=== PATIENT | male | born 1945 | race Caucasian/White ===

== ENCOUNTER → 2018-08-07 | Outpatient (CLI) | payer OTHER ==
[~2018-08-07] VITALS: Ht 172.7 cm; Wt 70.3 kg
[~2018-08-07] MED LIST: ALIGN4 MG PO; BYSTOLIC 5 MG5 M1 PO; CO Q-10150 MG PO; LUGOL'S STRONG I8 ML PO; OMEGA 3 FISH O1 EACH PO; PRAVACHOL80 MG PO; VASOTEC10 MG PO; VITAMIN B-125000 MC1 SUBLING; VITAMIN D35000 UNIT PO
--- NOTE | 2018-08-10 16:05 | PATH ---
[facility] [place] [address] PATHOLOGY RPT PROCEDURE Name: KAYLIE GLEASON Room #: REG QUIQUE Alcocer#: [id number] Admission: 08/07/18 Date of : 49 Discharge: Report #: [id number] Path Case #: [id number] [facility] Accession Number: [id number] . 01 Material submitted: . PART A: SIGMOID COLON POLYP X 2 PART B: RECTAL POLYP X 2 . 01 Clinical history: . Pre-OP DX: Dysphagia, GERD, Hx polyps Post-OP DX: Colon polyps, rectal polyps, diverticulosis, esophagitis, dysplasia . 02 Diagnosis: A. Polyp x 2, sigmoid colon polyp, endoscopic biopsy: - One fragment showing tubular adenoma without high grade dysplasia. - Remainder of fragments showing hyperplastic polyp without dysplasia. . B. Polyp x 2, rectal polyp, endoscopic biopsy: - Both fragments showing tubular adenoma. - Negative for high grade dysplasia. (IUV/db; 08/10/18) LBQ/08/10/2018 . 02 Electronically signed: . Connie Bernard MD, Pathologist NPI- [id number] . 01 Gross description: . A. Received in formalin labeled "Kaylie Gleason, ELIZABETH polyp at sigmoid colon x2," are 4 segments of rick soft tissue measuring 1.3 x 0.9 x 0.3 cm in aggregate dimensions and ranging from 0.3 to 0.5 cm in maximum dimension. The specimen is submitted entirely in cassette A1. . B. Received in formalin labeled "Kaylie Gleason, ELIZABETH rectal polyp x2," are 2 segments of rick soft tissue measuring 0.7 x 0.3 x 0.2 cm in aggregate dimensions and ranging from 0.3 to 0.4 cm in maximum dimension. The specimen is submitted entirely in cassette B1. (TSD; 08/07/2018) TOB/TOB . 02 Pathologist provided ICD-10: D12.5, K63.5, D12.8 . 02 CPT . 709147, 602963 Specimen Comment: A courtesy copy of this [place] [address] PATHOLOGY RPT PROCEDURE Name: KAYLIE GLEASON Room #: REG QUIQUE Alcocer#: [id number] Admission: 08/07/18 Date of : 49 Discharge: Report #: [id number] Path Case #: [id number] Specimen Comment: [phone], . Specimen Comment: Report sent to / DR GARCIA Performed at: [address], [place], [place] [id number] MD Herson Xiao MD Phone: [phone] Performed at: [address] [id number] MD Connie Bernard MD Phone: [phone]
== END | disposition home or self-care (01) ==
LOC: GI 06:28
DX: Z12.11 Encounter for screening for malignant neoplasm of colon (principal); Z80.0 Family history of malignant neoplasm of digestive organs; D12.8 Benign neoplasm of rectum; D12.5 Benign neoplasm of sigmoid colon; K63.5 Polyp of colon; K57.30 Diverticulosis of large intestine without perforation or abscess without bleeding; K21.0 Gastro-esophageal reflux disease with esophagitis; K22.2 Esophageal obstruction; I10 Essential (primary) hypertension; E78.5 Hyperlipidemia, unspecified; Z79.899 Other long term (current) drug therapy; Z98.890 Other specified postprocedural states; Z88.6 Allergy status to analgesic agent; Z87.19 Personal history of other diseases of the digestive system; Z86.010 Personal history of colon polyps
CPT/HCPCS: 62110; 62900

== ENCOUNTER → 2018-09-18 | Outpatient (CLI) | payer OTHER ==
[~2018-09-18] VITALS: Ht 172.7 cm; Wt 72.6 kg
--- NOTE | ~2018-09-18 | P ---
[facility] [place] [address] [place] [address] PROCEDURE REPORT Name: KAYLIE DAVILA Room #: REG [facility]#: [id number] Admission: 09/18/18 Attend Phys: Gurinder Chanel Discharge: Date of : 49 Report #: [id number] THIS REPORT FOR: //name// CC: Gurinder Miguel DATE OF SERVICE: 09/18/2018 PROCEDURE PERFORMED: Upper endoscopy with biopsies and esophageal dilation. HISTORY OF PRESENT ILLNESS: The patient is a 73-year-old male with a history of gastroesophageal reflux disease, who underwent an upper endoscopy by myself on 08/07/2018 for dysphagia and heartburn at that time. He was noted to have grade C erosive esophagitis, an inlet patch was noted in the upper esophagus. There was mild narrowing in the distal esophagus. Savary dilation with 48-Zimbabwean was performed and the patient was started on daily PPI therapy. He now presents for a routine followup to rule out the possibility of Kelley's. He does report intermittent dysphagia still at this time. He reports improvement in his heartburn symptoms, but continues to have intermittent heartburn on a daily basis. DESCRIPTION OF PROCEDURE: The risks and benefits of the procedure were explained to the patient, those risks including but not limited to bleeding, perforation, the risk of sedation. He understood these risks and gave informed consent. Sedation was given using propofol per anesthesia. Next, using a standard Olympus upper endoscope, the scope was placed in the patient's mouth and advanced under direct vision through the esophagus, stomach and into the second portion of the duodenum. The larynx was normal in appearance. In the proximal esophagus, inlet patch was once again noted. There was a mild narrowing extrinsically from the aorta in this area. The scope passed through without difficulty. Biopsies of the inlet patch were obtained. The mid esophagus was normal. In the distal esophagus at the GE junction, no further esophagitis was noted; however, 2 small patches of possible Kelley's were noted. Biopsies were obtained. No stricture was seen. Overall, the gastric mucosa was normal. The pylorus was normal and patent. The duodenal bulb, first and second portion were all normal. The scope was then brought back up into the patient's stomach and a Savary guidewire was inserted through the scope, leaving the guidewire in place as the scope was then removed. Next, a 51-Zimbabwean Savary dilation of the esophagus was performed without difficulty. The wire and dilator removed. The scope was reintroduced into the patient's stomach. There was no evidence of mucosal tear after dilation. The scope was then withdrawn and the procedure terminated. The patient tolerated the procedure well. IMPRESSION: 1. Inlet patch, proximal esophagus. 2. Previous grade C erosive esophagitis well healed, but possible short segment [facility] [address] [place] [address] PROCEDURE REPORT Name: KAYLIE DAVILA Room #: REG QUIQUE Alcocer#: [id number] Admission: 09/18/18 Attend Phys: Gurinder Chanel Discharge: Date of : 49 Report #: [id number] Kelley's. Biopsies obtained. 3. Otherwise, normal upper endoscopy. RECOMMENDATIONS: 1. Await biopsy results. 2. We discussed possible trial of b.i.d. PPI therapy at this time as the patient continues to have intermittent heartburn symptoms. 3. If no improvement in dysphagia, may consider esophageal manometry in the future. Thank you for allowing me to participate in his care. By: 0917 Gurinder Castellon MD /nt
--- NOTE | 2018-09-21 15:05 | PATH ---
[facility] [address] [place] [address] PATHOLOGY RPT PROCEDURE Name: KAYLIE GLEASON Room #: REG QUIQUE Alcocer#: [id number] Admission: 09/18/18 Date of : 49 Discharge: Report #: [id number] Path Case #: [id number] [facility] Accession Number: [id number] . 01 Material submitted: . PART A: BIOPSY DISTAL ESOPHAGUS R/O BARRETTS PART B: BIOPSY INLET PATCH PROXIMAL ESOPHAGUS . 01 Clinical history: . Pre-OP DX: 6 week follow-up (grade c esophagitis) dysphagia Post-OP DX: Reflux, dysphagia, healed esophagitis . 02 Diagnosis: A. Gastroesophageal mucosa, distal esophagus, rule out Kelley's, endoscopic biopsy: - Specialized columnar epithelium (gastric cardia-type mucosa) with intestinal metaplasia, compatible with Kelley's metaplasia. - Squamous mucosa with mild esophagitis. - Negative for dysplasia (please see comment). . B. Gastric cardia-type mucosa, inlet patch proximal esophagus, endoscopic biopsy: - Moderate chronic inflammation within gastric cardia-type mucosa, consistent with an inlet patch. - Negative for intestinal metaplasia or dysplasia. . (IUV:leanne; 09/21/2018) MBR/09/21/2018 . 02 Comment: Dr. Gustavo Rivers has seen patient account representative slides of this case and concurs with my diagnosis. . The above diagnosis of Kelley's esophagus is made due to presence of intestinal metaplasia and with the assumption that the biopsies were obtained from the columnar mucosa in the distal esophagus located at least 1 cm proximal to the top of the gastric folds as per the 2016 ACG guidelines. . (IUV:principal process engineer; 09/21/2018) . 02 Electronically signed: . Connie Bernard MD, Pathologist NPI- [id number] . 01 Gross description: . A. Received in formalin labeled "Kaylie Gleason BX, distal esophagus, [place] [address] PATHOLOGY RPT PROCEDURE Name: KAYLIE GLEASON [id number] Admission: 09/18/18 Date of : 49 Discharge: Report #: [id number] Path Case #: [id number] rule out Kelley's," are 2 segments of rick soft tissue measuring 0.9 x 0.2 x 0.2 cm in aggregate dimensions and ranging from 0.4 to 0.5 cm in maximum dimension. The specimen is submitted entirely in cassette A1. . B. Received in formalin labeled "Victorino, Kaylie, BX inlet patch," and additionally labeled on the requisition as "proximal esophagus," is a single segment of rick soft tissue measuring 0.6 cm in maximum dimension. The specimen is entirely submitted in cassette B1. (TSD; 09/18/2018) TOB/TOB . 02 Pathologist provided ICD-10: K22.70, K20.9, R13.10 . 02 CPT . 315200, 295669 Specimen Comment: A courtesy copy of this report has been sent to Specimen Comment: [phone], . Specimen Comment: Report sent to / DR GARCIA Performed at: [address], [place] [id number] MD Herson Xiao MD Phone: [phone] Performed at: [address] [id number] MD Connie Bernard MD Phone: [phone]
== END | disposition home or self-care (01) ==
LOC: GI 07:11
DX: K22.70 Barrett's esophagus without dysplasia (principal); K21.0 Gastro-esophageal reflux disease with esophagitis; R13.19 Other dysphagia; I10 Essential (primary) hypertension; E78.00 Pure hypercholesterolemia, unspecified; Z98.890 Other specified postprocedural states; Z88.6 Allergy status to analgesic agent; Z79.899 Other long term (current) drug therapy
CPT/HCPCS: 62110; 62900

== ENCOUNTER → 2019-09-17 | Outpatient (CLI) | payer OTHER ==
[~2019-09-17] VITALS: Ht 172.7 cm; Wt 70.3 kg
[~2019-09-17] MED LIST changes: +5-HTP100 MG PO; +ASA81BEC PO; +AZOR 5-40 MG T1 EACH PO; +CRESTOR10 MG PO; +MAGNESIUM250 M1 PO; +OMEPRAZOLE 20 M20 M1 PO
--- NOTE | 2019-09-22 09:46 | P ---
[facility] [place] [address] [place] [address] PROCEDURE REPORT Name: KAYLIE DAVILA Room #: REG [facility] Leodan#: [id number] Admission: 09/17/19 Attend Phys: Gurinder Chanel Discharge: Date of : 49 Report #: [id number] THIS REPORT FOR: cc: Michael Miguel MD, John R. MD McElhinney, Christian C. MD ~ CC: Gurinder Miguel DATE OF SERVICE: 09/17/2019 PROCEDURE PERFORMED: Upper endoscopy with biopsies and esophageal dilation. HISTORY OF PRESENT ILLNESS: The patient is a 74-year-old male with a history of gastroesophageal reflux disease, Kelley's, here for a 1 year followup. He does report some mild dysphagia at times. He is taking Prilosec on a daily basis. He continues to have breakthrough heartburn at times. DESCRIPTION OF PROCEDURE: The risks and benefits of the procedure were explained to the patient, those risks including but not limited to bleeding, perforation and the risk of sedation. He understood these risks and gave informed consent. Sedation was given using propofol per anesthesia. Next, using a standard Olympus upper endoscope, the scope was placed in the patient's mouth and advanced under direct vision through the esophagus, stomach and into the second portion of the duodenum. The larynx was normal in appearance. In the upper esophagus, an inlet patch was once again noted. Mid esophagus was normal. A small segment of Kelley's was noted in the distal esophagus. Biopsies were obtained. Overall, the gastric mucosa was normal. The pylorus was normal and patent. The duodenal bulb, first and second portion were all normal. The scope was then brought back up into the patient's stomach and a Savary guidewire was inserted through the scope, leaving the guidewire in place as the scope was then withdrawn. Next, a 48-Kyrgyz Savary dilation of the esophagus was then performed without difficulty. The wire and dilator were removed. The scope was reintroduced into the patient's stomach. There was no evidence of mucosal tear after dilation. The scope was then withdrawn and the procedure terminated. The patient tolerated the procedure well. IMPRESSION: 1. Short segment Kelley's esophagus. 2. Inlet patch in the proximal esophagus. 3. Otherwise, normal upper endoscopy. RECOMMENDATIONS: 1. Await biopsy results. 2. Observe the patient post-dilation. [address] [address] PROCEDURE REPORT Name: KAYLIE DAVILA Room #: REG QUIQUE Alcocer#: [id number] Admission: 09/17/19 Attend Phys: Gurinder Chanel Discharge: Date of : 49 Report #: [id number] 3. We discussed switching to Protonix to see if this controls his heartburn symptoms better. Thank you for allowing me to participate in his care. <ELECTRONICALLY SIGNED> By: Gurinder Castellon MD 09/22/19 0946 0917 9 Gurinder Castellon MD /leanne
== END | disposition home or self-care (01) ==
LOC: GI 09-14 07:50
DX: K22.70 Barrett's esophagus without dysplasia (principal); R13.19 Other dysphagia; K21.9 Gastro-esophageal reflux disease without esophagitis; I10 Essential (primary) hypertension; E78.5 Hyperlipidemia, unspecified; Z98.890 Other specified postprocedural states; Z79.899 Other long term (current) drug therapy; Z88.6 Allergy status to analgesic agent
CPT/HCPCS: 62110; 62900